=== PATIENT | female | born 1970 | race Caucasian/White ===

== ENCOUNTER 2017-11-20 06:02 | Emergency (ER) | payer OTHER ==
[2017-11-20 06:14] VITALS: O2SAT 100
[2017-11-20] MEDS ORDERED: Sodium Chloride 0.9% 1,000 ML IV ONE (06:35)
--- NOTE | 2017-11-20 06:37 | C.PDOC ---
History Of Present Illness <Ashely Parisi - Last Filed: 11/20/17 09:14> <Ning Chu - Last Filed: 11/20/17 19:11> 47 years old female presents to ED with complaints of left sided abdominal pain associated with vomiting and watery bowel movement. Denies fever. Pt states she felt fine until after dinner last night around 9pm which was when she vomited. Pt has no significant PMH or previous abdomen surgeries.Pt has hx of prior acid stomach and takes ranitidine. Pt states pain is different from usual "acid stomach pain." (Ning Chu) <Ashely Parisi - Last Filed: 11/20/17 09:14> History Per: Patient History/Exam Limitations: no limitations Onset/Duration Of Symptoms: Hrs Current Symptoms Are (Timing): Still Present Radiation Of Pain To:: None Quality Of Discomfort: "Pain" Associated Symptoms: Vomiting, Diarrhea. denies: Fever, Chest Pain Exacerbating Factors: None Alleviating Factors: None Recent travel outside of the [place]: No Abnormal Vaginal Bleeding: No <Ning Chu - Last Filed: 11/20/17 19:11> Chief Complaint (Nursing): Abdominal Pain Past Medical History Reviewed: Historical Data, Nursing Documentation, Vital Signs - Medical History PMH: Gastritis Surgical History: Coronary Stent Family History: States: No Known Family Hx - Social History Hx Alcohol Use: No Hx Substance Use: No - Immunization History Hx Tetanus Toxoid Vaccination: No Hx Influenza Vaccination: Yes Hx Pneumococcal Vaccination: No <Ning Chu - Last Filed: 11/20/17 19:11> Vital Signs: Last Vital Signs Temp 98.2 F 11/20/17 10:20 Pulse 86 11/20/17 10:20 Resp 16 11/20/17 10:20 BP 137/74 11/20/17 10:20 Pulse Ox 100 11/20/17 10:20 Review Of Systems Constitutional: Negative for: Fever Gastrointestinal: Positive for: Vomiting, Abdominal Pain (left sided), Diarrhea. Negative for: Nausea Neurological: Negative for: Weakness, Numbness <Ning Chu - Last Filed: 11/20/17 19:11> Physical Exam - Physical Exam Appears: Well, Non-toxic, In Acute Distress (Due to pain) Skin: Warm, Dry Head: Atraumatic, Normacephalic Eye(s): bilateral: Normal Inspection Oral Mucosa: Moist Neck: Supple Chest: Symmetrical, No Tenderness Cardiovascular: Rhythm Regular Respiratory: No Decreased Breath Sounds, No Accessory Muscle Use, No Rales, No Rhonchi, No Wheezing Gastrointestinal/Abdominal: Soft, Tenderness (subjective to LLQ), No Distention , No Guarding, No Rebound Pulses: Left Radial: Normal, Right Radial: Normal Neurological/Psych: Oriented x3, Normal Speech, Normal Cognition, Other (no focal deficits) <Ning Chu - Last Filed: 11/20/17 19:11> ED Course And Treatment - Laboratory Results Result Diagrams: 11/20/17 06:45 11/20/17 06:45 <Ashely Parisi - Last Filed: 11/20/17 09:14> - Laboratory Results Result Diagrams: 11/20/17 06:45 11/20/17 06:45 O2 Sat by Pulse Oximetry: 100 (RA) Pulse Ox Interpretation: Normal <Ning Chu - Last Filed: 11/20/17 19:11> Progress - Data Reviewed Data Reviewed: Lab, Diagnostic imaging, Old records <Ashely Parisi - Last Filed: 11/20/17 09:14> <Ning Chu - Last Filed: 11/20/17 19:11> - Re-Evaluation Re-evaluation Note: 11/20/17 07:00 S/O FROM DR CHU PENDING CT, DISPO 11/20/17 09:14 CT REPORT REVIEWED. PT CO RECUR PAIN. VSS. (Ashely Parisi) Medical Decision Making <Ashely Parisi - Last Filed: 11/20/17 09:14> <Ning Chu - Last Filed: 11/20/17 19:11> Medical Decision Making: Differential: LLQ pain, bowel obstruction, diverticulitis, or gastritis. Provide analgesics and perform CT abdomen and pelvis, blood work and urinalysis. (Ning Chu) Disposition Counseled Patient/Family Regarding: Studies Performed, Diagnosis, Need For Followup, Rx Given <Ashely Parisi - Last Filed: 11/20/17 09:14> - Disposition Disposition Time: 19:10 <Ning Chu - Last Filed: 11/20/17 19:11> - Disposition Referrals: [facility] [Outside] [facility] [Outside] Disposition: HOME/ ROUTINE Condition: IMPROVED Prescriptions: Acetaminophen with Codeine [Tylenol with Codeine No. 3 300 mg-30 mg] 1 tab PO Q6 PRN #12 tab PRN Reason: Pain, Moderate (4-7) Ibuprofen [Motrin] 600 mg PO Q6 #30 tab Ondansetron [Zofran Odt] 4 mg PO TID PRN #9 odt PRN Reason: Nausea/Vomiting Tamsulosin [Flomax] 0.4 mg PO DAILY #14 cap Instructions: Kidney Stones (ED) Forms: [employer] (Palauan) - Clinical Impression Clinical Impression: Ureterolithiasis, Renal colic <Ashely Parisi - Last Filed: 11/20/17 09:14> - Scribe Statement The provider has reviewed the documentation as recorded by the Scribe <Nnig Chu - Last Filed: 11/20/17 19:11> - Scribe Statement Jess Berg All medical record entries made by the Scribe were at my direction and personally dictated by me. I have reviewed the chart and agree that the record accurately reflects my personal performance of the history, physical exam, medical decision making, and the department course for this patient. I have also personally directed, reviewed, and agree with the discharge instructions and disposition. (Ning Chu)
[2017-11-20] MEDS ORDERED: Morphine 4 MG/ML VIAL ONE (06:48)
[2017-11-20] MEDS ORDERED: Sodium Chloride 0.9% 1,000 ML ONE (06:48)
[2017-11-20 06:56] LABS: BASO % 0.2 % (0.0-2.0); HEMOGLOBIN 12.2 g/dL (11.0-16.0); LYMPH # 0.9 K/uL (1.0-4.3); LYMPH % 6.8 % (20.0-40.0); MEAN CELL VOLUME 84.2 fL (81.0-99.0); MEAN CORPUSCULAR HEMOGLOBIN 29.6 pg (27.0-31.0); MEAN CORPUSCULAR HGB CONC 35.1 g/dL (33.0-37.0); MEAN PLATELET VOLUME 9.1 fL (7.2-11.7); MONO # 0.3 K/uL (0.0-0.8); MONO % 2.4 % (0.0-10.0); NEUT # 11.8 K/uL (1.8-7.0); NEUT % 90.6 % (50.0-75.0); PLATELET COUNT 223 K/uL (130-400); RBC 4.11 Mil/uL (3.80-5.20); RED CELL DISTRIBUTION WIDTH 14.5 % (11.5-14.5)
[2017-11-20 07:03] LABS: ALB/GLOB RATIO 1.4 (1.0-2.1); ALBUMIN 4.6 g/dL (3.5-5.0); ALT/SGPT 23 U/L (9-52); AST/SGOT 19 U/L (14-36); BLOOD UREA NITROGEN 15 mg/dL (7-17); CALCIUM 8.8 mg/dl (8.6-10.4); GFR AFRICAN-AMERICAN > 60; GFR NON-AFRICAN AMERICAN > 60; LIPASE 72 U/L (23-300)
[2017-11-20 07:54] LABS: SQUAMOUS EPITHIAL 2 /hpf (0-5); URINE BACTERIA RARE (<OCC); URINE BILIRUBIN NEGATIVE (NEGATIVE); URINE BLOOD 3+ (NEGATIVE); URINE CLARITY Hazy (Clear); URINE COLOR Yellow (YELLOW); URINE GLUCOSE (UA) NORMAL (Normal); URINE LEUKOCYTE ESTERASE 1+ Leu/uL (Negative); URINE NITRATE NEGATIVE (NEGATIVE); URINE PROTEIN 1+ mg/dL (NEGATIVE); URINE UROBILINOGEN NORMAL mg/dL (0.2-1.0)
[2017-11-20] MEDS ORDERED: Iohexol 300 100 ML IJ ONE (08:08)
[2017-11-20 08:17] LABS: ANISOCYTOSIS SLIGHT; BANDS 3 % (0-2); LARGE PLATELETS PRESENT; LYMPHOCYTE 6 % (20-40); MONOCYTE 3 % (0-10); NEUTROPHIL 88 % (50-75); PLATELET ESTIMATE NORMAL (NORMAL); TOTAL CELLS COUNTED 100; TOXIC GRANULATION PRESENT
--- NOTE | 2017-11-20 08:56 | CT ---
PROCEDURE: CT Abdomen and Pelvis with contrast HISTORY: Unspecified abdominal pain COMPARISON: 01/10/2015 abdominal ultrasound. Summary of findings on the comparison examination:Well-circumscribed echogenic mass of right hepatic lobe 1.7 cm compatible with a hemangioma TECHNIQUE: Contrast dose: 100 cc Omnipaque 300 Radiation dose: Total exam DLP = mGy-cm. This CT exam was performed using one or more of the following dose reduction techniques: Automated exposure control, adjustment of the mA and/or kV according to patient size, and/or use of iterative reconstruction technique. FINDINGS: LOWER THORAX: Unremarkable. LIVER: Stable findings in the right hepatic lobe 2 cm mass with peripheral enhancement consistent with hemangioma. GALLBLADDER AND BILE DUCTS: Unremarkable. PANCREAS: Unremarkable. No gross lesion or ductal dilatation. SPLEEN: Top-normal spleen. Subcentimeter splenic cysts. ADRENALS: Right adrenal gland: Unremarkable. No mass. Left adrenal gland: Focal enlargement likely benign adrenal adenoma. This measures 1.3 x 1.9 cm. KIDNEYS AND URETERS: Right kidney in ureter: Unremarkable. No hydronephrosis. No solid mass. Left kidney in ureter: 4 x 7 mm midpole calculus nonobstructing. This resides in the renal pelvis. VASCULATURE: Unremarkable. No aortic aneurysm. BOWEL: Constipation without fecal impaction or obstruction. APPENDIX: No abnormalities to suggest acute appendicitis. No right lower quadrant inflammatory processes identified. PERITONEUM: Unremarkable. No free fluid. No free air. LYMPH NODES: Unremarkable. No enlarged lymph nodes. BLADDER: Unremarkable. REPRODUCTIVE: Enlarged, anteverted uterus. Focal mass lower uterine segment 1.7 cm with contrast enhancement, the finding is of uncertain etiology or significance. Pelvic ultrasound would be beneficial for clarification. BONES: No acute fracture. OTHER FINDINGS: None. IMPRESSION: Renal calculus disease, unilateral left. Two small nonobstructing renal calculi identified. Additional benign and/or incidental findings described above.
[2017-11-20] MEDS ORDERED: Lidocaine 109 MG in Sodium Chloride 0.9% 100 ML IV STA (09:11)
[2017-11-20 10:21] VITALS: BP 137/74; PULSE 86; RESP 16; TEMP 98.2
== END 2017-11-20 10:21 | disposition home or self-care (01) ==
LOC: C.ER 06:02
DX: N20.1 Calculus of ureter (principal); N23 Unspecified renal colic
CPT/HCPCS: 74177; 80053; 81001; 83690; 84703; 85025; 96361; 96374; 96375; 99285; J1885; J2001; J2270; J2405; J7040; Q9967

== ENCOUNTER 2017-11-27 12:05 | Emergency (ER) | payer OTHER ==
[2017-11-27] MEDS ORDERED: Sodium Chloride 0.9% 1,000 ML IV ONE (13:19)
[2017-11-27] MEDS ORDERED: Sodium Chloride 0.9% 1,000 ML ONE (13:30)
--- NOTE | 2017-11-27 13:30 | C.PDOC ---
History Of Present Illness 47-year-old female, PMHx includes Gastritis, presents to the emergency department with complaints of diffuse, intermittent abdominal and lower back pain for the past week. Patient was seen for her symptoms a few days ago and given medication to take at home, but pain has persisted. States she had three episodes of bright red bloody stool today, that was only blood. Patient has not had a bowel movement in a week. She notes mild associated light headedness when she stands. Denies dysuria, fevers, chest pain, or any other associated symptoms. No other complaints at this time. PMD Mina Smith MD. Time Seen by Provider: 11/27/17 13:03 Chief Complaint (Nursing): GI Problem History Per: Patient History/Exam Limitations: no limitations Number Of Bleeding Episodes: Multiple: (3) Past Medical History Reviewed: Historical Data, Nursing Documentation, Vital Signs Vital Signs: Last Vital Signs Temp 98.1 F 11/27/17 20:01 Pulse 94 H 11/27/17 20:01 Resp 16 11/27/17 20:01 BP 114/72 11/27/17 20:01 Pulse Ox 98 11/27/17 20:15 - Medical History PMH: Gastritis Surgical History: Coronary Stent Family History: States: No Known Family Hx - Social History Hx Alcohol Use: No Hx Substance Use: No - Immunization History Hx Tetanus Toxoid Vaccination: No Hx Influenza Vaccination: Yes Hx Pneumococcal Vaccination: No Review Of Systems Except As Marked, All Systems Reviewed And Found Negative. Constitutional: Negative for: Fever, Chills Cardiovascular: Negative for: Chest Pain Respiratory: Negative for: Shortness of Breath Gastrointestinal: Positive for: Abdominal Pain, Hematochezia. Negative for: Nausea, Vomiting Musculoskeletal: Positive for: Back Pain Neurological: Positive for: Dizziness (Lightheadedness with standing.). 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 : [id number]. Patient Name / ID : ANTOLIN QUINTANILLA / [id number]. Exam Date : 11/27/2017 18:12:45 ( Approved ). Study Comment : Sex / Age : F / 47Y. Creator : Bradley Browne MD. Dictator : Bark Skinner : Musical Performer : Bradley Browne MD. Approver2 : Report Date : 19:23:00. My Comment : . [facility]. [facility] Division of Radiology. [address] [place] [address]. Tel. no. . . . Patient Name: DWIGHT DANGELO . Pt. [address]: [address] [place] [address]. Rec #: [id number]. [place] [address]: Dean CORDOVA,Ryan Harmon Pt Order Location: [facility] : 1970 Female Age: 47 Order #: [id number]. Reason for exam: eval for ureteral stone. . . . . . CT Scan. . . ABD PELVIS W/O PO OR IV CONT Exam Date: 11/27/17. . This imaging exam was performed at [facility]. EXAM: CT Abdomen and Pelvis Without Intravenous Contrast. . CLINICAL HISTORY: 47 years old, female; Pain; Abdominal pain; Flank; Other: Bilat; Additional. info : Eval for ureteral stone. . TECHNIQUE: Axial computed tomography images of the abdomen and pelvis without. intravenous contrast. All CT scans at this facility use one or more dose. reduction techniques, viz.: automated exposure control; ma/kV adjustment per. patient size (including targeted exams where dose is matched to indication;. i.e. head); or iterative reconstruction technique. Coronal and sagittal reformatted images were created and reviewed. . COMPARISON: CT - ABD PELVIS IV CONTRAST ONLY 2017-11-20 08:23. . FINDINGS: Limitations: Motion artifact - mild. Lower thorax: Mild cardiomegaly with postsurgical changes. Trace to small. pericardial effusion. . ABDOMEN: Liver: Unremarkable. Gallbladder and bile ducts: No calcified stones. No ductal dilation. Pancreas: Unremarkable. No ductal dilation. Spleen: No splenomegaly. Adrenals: LEFT adrenal adenoma. Kidneys and ureters : Small calculus within LEFT kidney. Moderate. pelvocaliectasis of LEFT kidney. 0.8 x 0.5 x 0.5 cm calculus within LEFT. proximal ureter. Stomach and bowel: No definite mural thickening. No obstruction. Appendix: No findings to suggest acute appendicitis. . PELVIS: Bladder: Unremarkable. No stones. Reproductive: Unremarkable as visualized. . ABDOMEN and PELVIS: Intraperitoneal space: Trace free fluid within pelvis. No free air. Bones/ joints: Probable bone islands. No acute fracture. Soft tissues: Unremarkable. Vasculature: Unremarkable. No aneurysm. Lymph nodes: No pathologically enlarged lymph nodes. . IMPRESSION: 1. LEFT proximal ureteral calculus with moderate hydronephrosis. 2. Incidental/non-acute findings are described above. . Dictated By: Bradley Browne MD. Dictated Date/Time: 11/27/171922. Signed By: Bradley Browne MD. Date Signed: 1922. Transcribed By: [facility]. Transcribe Date/Time: 11/27/171922. ACYP02/ [place] Medical Decision Making Medical Decision Makin disc w lab bc the stool per rectal exam did appear to be dark red- they verified the hemoccult test was indeed negative. I questioned the pt about food she ate in the last 2 days and she did eat some red landa sauce 2 days ago. ecg- nsr 81, nl axis, nl int, nonspec t wave changes [address] Bacon- he can see pt in his office at 8am tomorrow morning. the pt is comfortable with plan for discharge and follow up with urologist tomorrow morning, actually would prefer this to admission. return precautions advised. Disposition - Disposition Referrals: Alexys Bacon MD [Staff Provider] - Disposition: HOME/ ROUTINE Disposition Time: 20:13 Condition: STABLE Additional Instructions: Please follow up with the urologist: go to his office at 8AM tomorrow morning to be seen. Return to the ER for any fever, uncontrolled pain, repeated vomiting, or for any other concerns. Prescriptions: Hydrocodone/Acetaminophen [[place] 325 mg-5 mg] 1 tab PO Q6H PRN #12 tab PRN Reason: Pain, Severe (8-10) Ondansetron ODT [Zofran ODT] 4 mg PO Q4H PRN #10 odt PRN Reason: Nausea/Vomiting Instructions: Ureteral Stones (ED) Forms: General Discharge Instructions, [facility] (Belgian) - Clinical Impression Clinical Impression: Renal colic - Scribe Statement The provider has reviewed the documentation as recorded by the Scribe (Malik Yoo) All medical record entries made by the Scribe were at my direction and personally dictated by me. I have reviewed the chart and agree that the record accurately reflects my personal performance of the history, physical exam, medical decision making, and the department course for this patient. I have also personally directed, reviewed, and agree with the discharge instructions and disposition.
[2017-11-27 13:58] LABS: VENOUS BLOOD GAS PCO2 48 mmHg (40-60); VENOUS BLOOD GAS PO2 32 mm/Hg (30-55)
[2017-11-27 14:00] LABS: BASO % 0.6 % (0.0-2.0); EOS # 0.1 K/uL (0.0-0.7); EOS % 0.8 % (0.0-4.0); HEMOGLOBIN 11.8 g/dL (11.0-16.0); LYMPH # 1.2 K/uL (1.0-4.3); LYMPH % 17.1 % (20.0-40.0); MEAN CELL VOLUME 84.4 fL (81.0-99.0); MEAN CORPUSCULAR HEMOGLOBIN 28.9 pg (27.0-31.0); MEAN CORPUSCULAR HGB CONC 34.2 g/dL (33.0-37.0); MEAN PLATELET VOLUME 8.4 fL (7.2-11.7); MONO # 0.6 K/uL (0.0-0.8); MONO % 8.4 % (0.0-10.0); NEUT % 73.1 % (50.0-75.0); NRBC % 0.1 % (0.0-2.0); RBC 4.07 Mil/uL (3.80-5.20); RED CELL DISTRIBUTION WIDTH 13.9 % (11.5-14.5); WHITE BLOOD COUNT 6.9 K/uL (4.8-10.8)
[2017-11-27 14:25] LABS: ALBUMIN 4.3 g/dL (3.5-5.0); ALT/SGPT 28 U/L (9-52); AST/SGOT 15 U/L (14-36); BLOOD UREA NITROGEN 12 mg/dL (7-17); CALCIUM 9.3 mg/dl (8.6-10.4); GFR AFRICAN-AMERICAN > 60; GFR NON-AFRICAN AMERICAN > 60
[2017-11-27 15:13] LABS: SQUAMOUS EPITHIAL 7 /hpf (0-5); URINE BILIRUBIN NEGATIVE (NEGATIVE); URINE BLOOD 1+ (NEGATIVE); URINE CLARITY Hazy (Clear); URINE COLOR Yellow (YELLOW); URINE GLUCOSE (UA) NORMAL (Normal); URINE LEUKOCYTE ESTERASE NEG Leu/uL (Negative); URINE NITRATE NEGATIVE (NEGATIVE); URINE PROTEIN 1+ mg/dL (NEGATIVE)
[2017-11-27 19:06] VITALS: RESP 16
--- NOTE | 2017-11-27 19:24 | CT ---
EXAM: CT Abdomen and Pelvis Without Intravenous Contrast CLINICAL HISTORY: 47 years old, female; Pain; Abdominal pain; Flank; Other: Bilat; Additional info: Eval for ureteral stone TECHNIQUE: Axial computed tomography images of the abdomen and pelvis without intravenous contrast. All CT scans at this facility use one or more dose reduction techniques, viz.: automated exposure control; ma/kV adjustment per patient size (including targeted exams where dose is matched to indication; i.e. head); or iterative reconstruction technique. Coronal and sagittal reformatted images were created and reviewed. COMPARISON: CT - ABD PELVIS IV CONTRAST ONLY 2017-11-20 08:23 FINDINGS: Limitations: Motion artifact - mild. Lower thorax: Mild cardiomegaly with postsurgical changes. Trace to small pericardial effusion. ABDOMEN: Liver: Unremarkable. Gallbladder and bile ducts: No calcified stones. No ductal dilation. Pancreas: Unremarkable. No ductal dilation. Spleen: No splenomegaly. Adrenals: LEFT adrenal adenoma. Kidneys and ureters: Small calculus within LEFT kidney. Moderate pelvocaliectasis of LEFT kidney. 0.8 x 0.5 x 0.5 cm calculus within LEFT proximal ureter. Stomach and bowel: No definite mural thickening. No obstruction. Appendix: No findings to suggest acute appendicitis. PELVIS: Bladder: Unremarkable. No stones. Reproductive: Unremarkable as visualized. ABDOMEN and PELVIS: Intraperitoneal space: Trace free fluid within pelvis. No free air. Bones/joints: Probable bone islands. No acute fracture. Soft tissues: Unremarkable. Vasculature: Unremarkable. No aneurysm. Lymph nodes: No pathologically enlarged lymph nodes. IMPRESSION: 1. LEFT proximal ureteral calculus with moderate hydronephrosis. 2. Incidental/non-acute findings are described above.
[2017-11-27 20:02] VITALS: BP 114/72; PULSE 94; TEMP 98.1
[2017-11-27 20:13] VITALS: O2SAT 98
--- NOTE | 2017-12-03 00:35 | CARD ---
APPROVED REPORT EKG Measurement Heart [id number] <Conclusion> Normal sinus rhythm Nonspecific T wave abnormality Abnormal ECG
== END 2017-11-27 20:34 | disposition home or self-care (01) ==
LOC: C.ER 12:05
DX: N13.2 Hydronephrosis with renal and ureteral calculous obstruction (principal)
CPT/HCPCS: 74176; 80053; 81001; 82803; 85025; 86850; 86900; 93005; 96361; 96374; 96375; 96376; 99285; G0328; J1885; J2270; J7040

== ENCOUNTER 2018-11-20 17:07 | Emergency (ER) | payer MEDICAID, OTHER ==
[2018-11-20 17:45] VITALS: BMI 24.1
[2018-11-20 17:51] VITALS: RESP 18; TEMP 97.9; O2SAT 100
[2018-11-20] MEDS ORDERED: Tetanus/Diphtheria Toxoids 0.5 ml Syringe IM ONE ×2 (18:48→18:55)
[2018-11-20] MEDS ORDERED: Bacitracin 500 Units/gm Oint Foilpak UD TOP ONE (20:15)
[2018-11-20] MEDS ORDERED: Bacitracin 500 Units/gm Oint Foilpak UD ONE (20:15)
--- NOTE | 2018-11-20 20:24 | C.PDOC ---
History Of Present Illness 48 year old female presents to the ED for evaluation of an injury sustained to her left great toe prior to arrival. Patient states was trying to open a door when her left great toe accidentally got squeezed between the door and a wall. Patient denies any other injuries or extremity numbness/weakness at this time. Time Seen by Provider: 11/20/18 18:38 Chief Complaint (Nursing): Lower Extremity Problem/Injury History Per: Patient History/Exam Limitations: no limitations Onset/Duration Of Symptoms: Hrs Current Symptoms Are (Timing): Still Present Additional History Per: Patient Past Medical History Reviewed: Historical Data, Nursing Documentation, Vital Signs Vital Signs: Last Vital Signs Temp 97.9 F 11/20/18 17:45 Pulse 82 11/20/18 17:45 Resp 18 11/20/18 17:45 BP 127/75 11/20/18 17:45 Pulse Ox 100 11/20/18 17:45 - Medical History PMH: Gastritis Denies: Chronic Kidney Disease Surgical History: Coronary Stent Family History: States: Unknown Family Hx - Social History Hx Alcohol Use: No Hx Substance Use: No - Immunization History Hx Tetanus Toxoid Vaccination: No Hx Influenza Vaccination: Yes Hx Pneumococcal Vaccination: No Review Of Systems Skin: Positive for: Other (left great toe injury ) Neurological: Negative for: Weakness, Numbness Physical Exam - Physical Exam Appears: Non-toxic, No Acute Distress Skin: Normal Color, Warm, Dry Head: Atraumatic, Normacephalic Eye(s): bilateral: Normal Inspection Extremity: Normal ROM, Capillary Refill (less than 2 seconds ), Other (subungual hematoma to left great toe, about 75% with nail partially avulsed. mild bleeding noted ) Pulses: Left Dorsalis Pedis: Normal, Right Dorsalis Pedis: Normal Neurological/Psych: Oriented x3, Normal Speech, Normal Cognition ED Course And Treatment O2 Sat by Pulse Oximetry: 100 (on RA) Pulse Ox Interpretation: Normal Progress Note: Left foot XR ordered and reviewed. Shows no fracture. Nail trephination was performed by me. Patient tolerated well. Bacitracin TOP applied. Motrin PO and Tetanus IM given. On reassessmetn, patient is resting comfortably, showing no signs of distress and is stable for discharge. Patient advised to f/u with PMD within 1-2 days for further evaluation. Disposition - Disposition Referrals: Dharmesh Castillo DPM [Staff Provider] - Disposition: HOME/ ROUTINE Disposition Time: 20:21 Condition: STABLE Additional Instructions: Follow up with PMD and [employer] within 1-2 days. Return to ED if feel worse. Prescriptions: Cephalexin [cephalexin] 500 mg PO Q6 #20 cap Instructions: Contusion (DC), Nail Avulsion Forms: [employer] (Latvian) - Clinical Impression Clinical Impression: Subungual hematoma of great toe of left foot, Nail avulsion - PA / GRINDING OPERATOR / Resident Statement MD/DO has reviewed & agrees with the documentation as recorded. - Scribe Statement The provider has reviewed the documentation as recorded by the Scribe (Wendy Oakley) All medical record entries made by the Scribe were at my direction and personally dictated by me. I have reviewed the chart and agree that the record accurately reflects my personal performance of the history, physical exam, medical decision making, and the department course for this patient. I have also personally directed, reviewed, and agree with the discharge instructions and disposition.
[2018-11-20 20:33] VITALS: BP 136/82; PULSE 83
--- NOTE | 2018-11-21 08:17 | RAD ---
PROCEDURE: Radiographs of the left great toe. TECHNIQUE:: AP radiograph of the left foot, with oblique and lateral view of the left great toe. COMPARISON: None. FINDINGS: BONES: No acute fracture or destructive bony lesion identified. JOINTS: No subluxation or dislocation. Sclerosis of the articular margins at the 1st metatarsophalangeal joint indicates mild degenerative joint disease. SOFT TISSUES: Normal. OTHER FINDINGS: None. IMPRESSION: No acute fracture or dislocation left great toe. Degenerative changes are seen at the 1st metatarsophalangeal joint left foot.
== END 2018-11-20 20:29 | disposition home or self-care (01) ==
LOC: C.ER 17:07
DX: S90.212A Contusion of left great toe with damage to nail, initial encounter (principal); S91.202A Unspecified open wound of left great toe with damage to nail, initial encounter; W23.0XXA Caught, crushed, jammed, or pinched between moving objects, initial encounter

== ENCOUNTER 2018-12-08 10:37 | Outpatient (CLI) | payer MEDICAID | END 2018-12-08 10:38 | disposition home or self-care (01) | LOC: C.USIC 10:37 | DX: R10.2 Pelvic and perineal pain (principal); R10.9 Unspecified abdominal pain ==

== ENCOUNTER 2018-12-08 10:48 | Outpatient (CLI) | payer MEDICAID | END 2018-12-08 10:49 | disposition home or self-care (01) | LOC: C.MAMMO 10:48 | DX: Z12.31 Encounter for screening mammogram for malignant neoplasm of breast (principal) ==